=== PATIENT | female | born 1985 | race Caucasian/White ===

== ENCOUNTER 2016-08-16 16:18 | Observation (INO) | payer OTHER ==
[~2016-08-16 16:18] MED LIST: ADVIL200 M2 PO; MOTRIN800 MG PO; NORCO 5/3251 TAB PO; PERCOCET 5/3251 TAB PO; PRENATABS RX T1 EACH PO; PRENATAL FORMU1 EAC1 PO; PRENATAL1 EACH PO; ZOFRAN4 M1 PO
== END 2016-08-16 17:15 ==
LOC: LDR 16:18
PROVIDERS: ADMIT Obstetrics & Gynecology Obstetrics
DX: O46.92 Antepartum hemorrhage, unspecified, second trimester (principal); Z3A.22 22 weeks gestation of pregnancy; Z98.890 Other specified postprocedural states